=== PATIENT | female | born 1970 | race Hispanic/Latino ===

== ENCOUNTER → 2018-11-22 | Day surgery (SDC) | payer OTHER ==
[~2018-11-22] MED LIST: AMLODIPINE-BEN1 EACH PO; ATENOLOL50 MG PO; CEFAZOLIN SOD 1 GM/NS 50ML 50 ML IV ONE; DEXAMETHASONE SOD PHOS INJ 4 MG/ML VIAL ONE; EPINEPHRINE HCL 1:1000 1ML 1 MG/ML AMP ONE; FENTANYL CITRATE/PF 100MCG/2 ML INJ ONE; FERROUS SULFAT325 M1 PO; GLIPIZIDE5 MG PO; HYDROXYZINE HCL25 MG PO; LIDOCAINE HCL 2% LOCAL INJ 5 ML SDV VIAL INJ ONE; METFORMIN HCL500 MG PO; MIDAZOLAM HCL 2 MG/2 ML VIAL ONE; OMEPRAZOLE40 MG PO; ONDANSETRON HCL INJ 2MG/ML 2ML 2 MG/ML VIAL ONE; PHENYLEPHRINE HCL 1% 10 MG/ML VIAL ONE; PROPOFOL IV EMULSION 10 MG/ML 20 ML VIAL ONE; ROCURONIUM BROMIDE 10 MG/ML 5ML VIAL ONE; ROPIVACAINE 0.5% 5 MG/ML 30 ML SDV ONE; SEVOFLURANE INHAL SOLN 250 ML PEN BTL ONE; SIMVASTATIN40 MG PO; TERBINAFINE HC250 MG PO
--- OUTSIDE RECORDS SUMMARY | 2018-11-22 07:40 | XMS REPORT ---
Author Organization Unknown Address [address] [place] [address] Phone [phone] Care Team Providers Care Annual Giving Manager Name Role Phone ERIKA "CARLYLE" CHRISTINA RIVERS 3 [phone] Allergies Code Code System Name Reaction Severity Status Onset NKDA Medications Name Status Start Date Stop Date amlodipine 5 mg-benazepril 20 mg capsule Active Not available atenolol 25 mg tablet alya 1 tableta por via oral dos veces cada aurelio Active Not available diclofenac 1 % topical gel Active Not available diflorasone 0.05 % topical cream Active Not available famotidine 20 mg tablet ayla 1 tableta jas veces cada amparo Active Not available fluoxetine 20 mg tablet Take 1 tablet every day by oral route. Active Not available glipizide 10 mg tablet ayla 1 tableta por via oral dos veces cada aurelio con comidas Active Not available hydroxyzine HCl 25 mg tablet Active Not available indomethacin 25 mg capsule ayla 1 capsula por via oral dos veces cada aurelio Active Not available Januvia 100 mg tablet ayla 1 tableta por via oral david vez cada aurelio Active Not available lisinopril 10 mg tablet ayla 1 tableta por via oral david vez cada aurelio Active Not available loratadine 10 mg tablet Take 1 tablet every day by oral route for 90 days. Active Not available metformin 1,000 mg tablet ayla 1 tableta por via oral dos veces cada aurelio con comidas Active Not available methylprednisolone 4 mg tablets in a dose pack Active Not available naproxen 500 mg tablet Active Not available rosuvastatin 40 mg tablet Active Not available triamcinolone acetonide 0.1 % topical cream APPLY A THIN LAYER TO THE AFFECTED AREA(S) BY TOPICAL ROUTE 2 TIMES PER DAY Active Not available Problems Name Status Onset Date Source Type 2 Diabetes Mellitus Active 09/07/2017 Essential Hypertension Active 09/07/2017 Dermatitis Factitia Active 09/14/2017 Shoulder Joint Pain Active 09/14/2017 Procedures Date Name Performed by 09/07/2017 XR, Shoulder, 2 or More View [facility] [address] [place] [address] (Work [address]) 09/07/2017 MRI, Shoulder, W/o Contrast [facility] [address] [place] [address] (Work Place) Notes: Patient indicated no previous surgeries on (11/13/2017) Lab Results Date Name Specimen Result Interpretation Description Value Range Status Address 09/07/2017 CBC W/ Auto Diff Wbc 6.96 x10*3/L 3.98-10.04 x10*3/L Final [facility]: [address] Naqvi [address] [place] [address] Low Rbc 3.84 10*12/L 3.93-5.22 10*12/L Final [facility]: [address] Mad[address] Vega [address] Hemoglobin 11.80 g/dL 11.20-15.70 g/dL Final [facility]: [address] Naqvi [address] [place] [address] Hematocrit 34.4 % 34.1-44.9 % Final [facility]: [address] Vega [address] Mcv 89.6 fL 80.0-100.0 fL Final [facility]: [address] Naqvi [address] [place] [address] Mch 30.7 pg 25.6-32.2 pg Final [facility]: [address] Naqvi [address] [place] [address] Mchc 34.3 g/dL 32.2-35.5 g/dL Final [facility]: [address] RDW-SD 38.4 fL 36.4-46.3 fL Final [facility]: [address] Platelet Count 222.0 k/uL 182.0-369.0 k/uL Final [facility]: [address] Naqvi [address] [place] [address] High Mpv 12.1 fL 7.5-11.5 fL Final [facility]: [address] Naqvi [address] [place] [address] Neut% 63.7 % 34.0-71.1 % Final [facility]: [address] Lymph% 26.3 % 19.3-51.7 % Final [facility]: [address] [place] Mon% 7.5 % 4.7-12.5 % Final [facility]: [address] [place] Eos% 1.9 % 0.7-5.8 % Final [facility]: [address] [place] Baso% 0.6 % 0.1-1.2 % Final [facility]: [address] [facility] Neut# 4.4 x10*3/L 1.6-6.1 x10*3/L Final [facility]: [address] Naqvi [address] [place] [address] Lymph# 1.8 x10*3/L 1.2-3.7 x10*3/L Final [facility]: [address] [facility] Mon# 0.5 x10*3/L 0.2-0.9 x10*3/L Final [facility]: 55 Madelyn Naqvi [address] [place] [address] Eos# 0.13 x10*3/L 0.04-0.36 x10*3/L Final [facility]: [address] Naqvi [address] [place] [address] Baso# 0.04 x10*3/L 0.01-0.08 x10*3/L Final [facility]: [address] [facility] 09/07/2017 CMP, Serum or Plasma Alt 14 U/L 0-55 U/L Final [facility]: [address] Vega [address] Ast 15 U/L 5-34 U/L Final [facility]: [address] Naqvi [address] [place] [address] Bun 16.7 mg/dL 7.0-18.7 mg/dL Final [facility]: [address] Alk Phos 92 unit/L 40-150 unit/L Final [facility]: [address] [facility] High Glucose 167 mg/dL 70-99 mg/dL Final [facility]: [address] Low Albumin 3.4 g/dL 3.5-5.0 g/dL Final [facility]: [address] Creatinine 0.77 mg/dL 0.57-1.11 mg/dL Final [facility]: [address] eGFR Non- >60 mL/min/1.73m2 >60 mL/min/1.73m2 Final [facility]: [address] Total Bilirubin 0.4 mg/dL 0.2-1.2 mg/dL Final [facility]: [address] eGFR - >60 mL/min/1.73m2 >60 mL/min/1.73m2 Final [facility]: [address] Sodium 139 mEq/L 136-145 mEq/L Final [facility]: [address] High Potassium 5.4 mEq/L 3.5-5.1 mEq/L Final [facility]: [address] High Chloride 110 mmol/L 98-107 mmol/L Final [facility]: [address] Total Protein 7.0 g/dL 6.4-8.3 g/dL Final [facility]: [address] Calcium 9.1 mg/dL 8.4-10.2 mg/dL Final [facility]: [address] Co2 24.1 mmol/L 22.0-29.0 mmol/L Final [facility]: [address] Anion Gap 5 calc Final [facility]: [address] Naqvi [address] [place] [address] 09/07/2017 Lipid Panel, Serum Hdl 48 mg/dL 40-60 mg/dL Final [facility]: [address] Triglyceride 126 mg/dL 0-149 mg/dL Final [facility]: [address] VLDL Calc. 25 mg/dL Final [facility]: [address] cholesterol/HDL Ratio 4.6 mg/dL Final [facility]: [address] High non-HDL Cholesterol Calc. 175 mg/dL 0-160 mg/dL Final [facility]: [address] High Cholesterol 223 mg/dL 0-199 mg/dL Final [facility]: [address] High LDL Calc. 150 mg/dL 0-130 mg/dL Final [facility]: [address] 09/07/2017 HbA1C (Hemoglobin a1C), Blood High A1C W/eag 9.8 % 1.0-5.7 % Final [facility]: [address] Average Blood Glucose 235 mg/dL Final [facility]: [address] Past Encounters 11/13/2017 Pruritus of Skin; Dermatitis Factitia; Body Mass Index 30+ - Obesity; Depression Screening Brii Ordaz MD: [address] [place] [phone], Ph. 11/02/2017 Pruritus of Skin; Dermatitis Factitia; Body Mass Index 30+ - Obesity Brii Ordaz MD: [address] [phone], Ph. 09/14/2017 Body Mass Index 30+ - Obesity; Shoulder Joint Pain; Dermatitis Factitia; Type 2 Diabetes Mellitus; Essential Hypertension; Mixed Hyperlipidemia Erika Chowdary MD: [id number] [facility], [address] [phone], Ph. 09/07/2017 Body Mass Index 30+ - Obesity; Type 2 Diabetes Mellitus; Essential Hypertension; Rotator Cuff Syndrome Erika Chowdary MD: [id number] [facility], [address] [phone], Ph. Social History Smoking Status Never Smoker Vaccine List Vaccine Type influenza, injectable, quadrivalent 05/17/2017 Plan of Care Reminders Provider Appointments None recorded. Lab None recorded. Referral None recorded. Procedures None recorded. Surgeries None recorded. Imaging None recorded. Vitals 11/13/2017 09:15AM Work In Same Day Height Weight BMI Blood Pressure 5 ft 2 in 188.5 lbs 34.5 kg/m2 120/76 mm[Hg] 11/02/2017 11:45AM Est Patient Height Weight BMI Blood Pressure 5 ft 2 in 193.3 lbs 35.4 kg/m2 120/70 mm[Hg] 09/14/2017 10:30AM Est Patient Height Weight BMI Blood Pressure 5 ft 2 in 193.2 lbs 35.3 kg/m2 (1) 178/101 mm[Hg] (2) 166/98 mm[Hg] 09/07/2017 11:00AM New Patient Height Weight BMI Blood Pressure 5 ft 2 in 189.8 lbs 34.7 kg/m2 164/100 mm[Hg]
[2018-11-22 12:50] VITALS: BP 138/68
--- NOTE | 2018-11-22 14:02 | Operative Report ---
DATE OF PROCEDURE: 11/22/2018 SURGEON: Ebenezer Dozier MD FULL SERVICE SUPERVISOR: Hill German, certified PA. PREOPERATIVE DIAGNOSIS: Left shoulder intractable impingement. POSTOPERATIVE DIAGNOSES: Left shoulder intractable impingement with adhesive capsulitis. PROCEDURES: Left shoulder manipulation under anesthesia, diagnostic arthroscopy, subacromial decompression. INDICATIONS: The patient is a 48-year-old lady with a long history of left shoulder pain. She has had progressive loss of motion. She has failed extensive conservative management. She would now like to proceed with more aggressive intervention. The risks and benefits of diagnostic arthroscopy with repairs as indicated have been explained. She states she understands and wishes to proceed. PROCEDURE IN DETAIL: The patient was brought to the operating room and placed under general anesthetic. She received a regional block and prophylactic antibiotics in the holding area. She was positioned in the beach chair position on the shoulder table. During prepping, her left shoulder was noted to have a firm stop with about 90 degrees of active elevation. A manipulation under anesthesia was performed. There was a palpable release of the inferior capsule and the patient was noted to have full passive elevation. She was also manipulated into external rotation. Once the shoulder was prepped and draped in a sterile manner, a preoperative time-out was performed. Standard posterior arthroscopy portal was established. The shoulder was insufflated with sterile saline. The intra-articular hematoma had to be cleared to provide adequate visualization. The glenohumeral surfaces were well preserved. There was synovitis in the joint. The labrum and biceps anchor at the superior glenoid tubercle was intact and stable. The rotator cuff demonstrated no evidence of a tear. The biceps tendon was intact and without pathology as it exited the joint. The scope was then placed into the subacromial space. A subacromial bursectomy was performed. The bursal surface of the rotator cuff was carefully inspected and probed. There was no evidence of any bursal surface tear. A subacromial bony decompression was performed. Before and after photographs were taken. The arthroscopic instruments were then removed. The portal incisions were closed with nylon stitches. A sterile bandage was applied. She was extubated and transported to the recovery room in stable condition in an UltraSling. There was no blood loss and all needle and sponge counts were correct. Ebenezer Dozier MD DR/LAURIE /[id number]
== END | disposition home or self-care (01) ==
LOC: OR 07:37
PROVIDERS: ATTEND Specialist
DX: M75.42 Impingement syndrome of left shoulder (principal); M75.02 Adhesive capsulitis of left shoulder; E11.9 Type 2 diabetes mellitus without complications; I10 Essential (primary) hypertension; E78.5 Hyperlipidemia, unspecified; K21.9 Gastro-esophageal reflux disease without esophagitis; Z79.84 Long term (current) use of oral hypoglycemic drugs; Z68.33 Body mass index [BMI] 33.0-33.9, adult
CPT/HCPCS: 36415; 81025; 82948; J0171; J0690; J1100; J2001; J2250; J2370; J2405; J2795

== ENCOUNTER → 2019-07-08 | Day surgery (SDC) | payer OTHER ==
[~2019-07-08] MED LIST changes: -CEFAZOLIN SOD 1 GM/NS 50ML 50 ML IV ONE; -DEXAMETHASONE SOD PHOS INJ 4 MG/ML VIAL ONE; -EPINEPHRINE HCL 1:1000 1ML 1 MG/ML AMP ONE; +FAMOTIDINE20 MG PO; -FENTANYL CITRATE/PF 100MCG/2 ML INJ ONE; -LIDOCAINE HCL 2% LOCAL INJ 5 ML SDV VIAL INJ ONE; -MIDAZOLAM HCL 2 MG/2 ML VIAL ONE; -ONDANSETRON HCL INJ 2MG/ML 2ML 2 MG/ML VIAL ONE; +PANTOPRAZOLE SO40 MG PO; -PHENYLEPHRINE HCL 1% 10 MG/ML VIAL ONE; -PROPOFOL IV EMULSION 10 MG/ML 20 ML VIAL ONE; +PROPOFOL IV EMULSION 10 MG/ML 50 ML VIAL ONE; -ROCURONIUM BROMIDE 10 MG/ML 5ML VIAL ONE; -ROPIVACAINE 0.5% 5 MG/ML 30 ML SDV ONE; -SEVOFLURANE INHAL SOLN 250 ML PEN BTL ONE; +SIMETHICONE 40 MG/0.6 ML BTL ONE
[2019-07-08 07:45] VITALS: BP 119/73
== END | disposition home or self-care (01) ==
LOC: OR 06:04
PROVIDERS: ATTEND Internal Medicine Gastroenterology
DX: K29.50 Unspecified chronic gastritis without bleeding (principal); K21.9 Gastro-esophageal reflux disease without esophagitis; K44.9 Diaphragmatic hernia without obstruction or gangrene; Z71.3 Dietary counseling and surveillance; E66.9 Obesity, unspecified; I10 Essential (primary) hypertension; E78.00 Pure hypercholesterolemia, unspecified; E11.9 Type 2 diabetes mellitus without complications; Z79.84 Long term (current) use of oral hypoglycemic drugs; Z68.32 Body mass index [BMI] 32.0-32.9, adult
CPT/HCPCS: 36415; 43239; 81025; 82948; 88305; 88312